=== PATIENT | male | born 1980 | race Caucasian/White ===

== ENCOUNTER 2020-04-08 12:42 | Emergency (ER) | payer OTHER ==
--- NOTE | 2020-04-08 13:07 | ER Document Report ---
ED Medical Screen (RME) - General Stated Complaint: CHEST PAIN/TIGHTNESS/BLOOD PRESSURE PROBLEM Time Seen by Provider: 04/08/20 12:56 Notes: HPI: 39-year-old male presenting for evaluation of chest pain that began last night. Developed nausea after dinner then a mild discomfort that seem to radiate up through the central chest and occasionally into the back under the left shoulder blade. Mild shortness of breath. Symptoms persisted and worsened today, his mother checked his blood pressure and it was elevated at home they reconfirmed this at [facility] and then came over to the hospital. No history of hypertension PHYSICAL EXAMINATION: Patient appears mildly uncomfortable. No reproducible pain on palpation of the abdomen. EKG normal sinus rhythm without visible ectopy I have greeted and performed a rapid initial assessment of this patient. A comprehensive ED assessment and evaluation of the patient, analysis of test results and completion of medical decision making process will be conducted by an additional ED providers. - Related Data Allergies/Adverse Reactions: amoxicillin Allergy (Verified 04/08/20 13:01) Physical Exam - Vital signs Vitals: Temp Pulse Resp BP Pulse Ox 97.5 F 95 16 152/112 H 100 04/08/20 12:59 04/08/20 12:59 04/08/20 12:59 04/08/20 12:59 04/08/20 12:59 Course - Vital Signs Vital signs: Temp Pulse Resp BP Pulse Ox 97.5 F 95 16 152/112 H 100 04/08/20 12:59 04/08/20 12:59 04/08/20 12:59 04/08/20 12:59 04/08/20 12:59
--- NOTE | 2020-04-08 13:26 | RADIOLOGY REPORT (SQ) ---
EXAM DESCRIPTION: CHEST SINGLE VIEW IMAGES COMPLETED DATE/TIME: 04/08/2020 1:17 pm REASON FOR STUDY: chest pain COMPARISON: None. EXAM PARAMETERS: NUMBER OF VIEWS: One view. TECHNIQUE: Single frontal radiographic view of the chest acquired. RADIATION DOSE: NA LIMITATIONS: None. FINDINGS: LUNGS AND PLEURA: No opacities, masses or pneumothorax. No pleural effusion. MEDIASTINUM AND HILAR STRUCTURES: No masses. Contour normal. HEART AND VASCULAR STRUCTURES: Heart normal in size. Normal vasculature. BONES: No acute findings. HARDWARE: None in the chest. OTHER: No other significant finding. IMPRESSION: NO ACUTE RADIOGRAPHIC FINDING IN THE CHEST. TECHNICAL DOCUMENTATION: JOB ID: [id number] 2010 [employer]- All Rights Reserved Reading location - IP/workstation name: [email or web address]
--- NOTE | 2020-04-08 13:53 | ER Document Report ---
ED General - General Chief Complaint: Chest Pain Stated Complaint: CHEST PAIN/TIGHTNESS/BLOOD PRESSURE PROBLEM Time Seen by Provider: 04/08/20 12:56 Primary Care Provider: AYDIN MALIK MD [ACTIVE STAFF] - Follow up in 3-5 days (To discuss outpatient stress test) Notes: 39-year-old male presents with chest pain. He is been having nausea for about 2 days since arriving here from [place] to stay with his mom. Today he still felt malaise and then was helping put HD TV on the wall not lifting or exerting himself and developed pain in his lower breastbone" area which radiates straight up into his throat. Had some mild left neck pain as well. No radiation to the back or down the arm. Mild shortness of breath and nausea at that time. Now resolved. Occurred about 7 AM and lasted over an hour. Never had this before. No known coronary disease. Does not smoke. Cocaine user in the past but is not used in 2-3 years. Hypertensive at triage. - Related Data Allergies/Adverse Reactions: amoxicillin Allergy (Verified 04/08/20 13:01) Home Medications: gabapentin. wellbutrin xr Past Medical History - General Information source: Patient - Social History Smoking Status: Former Smoker Chew tobacco use (# tins/day): No Frequency of alcohol use: Heavy Drug Abuse: None Family History: None Review of Systems - Review of Systems Notes: REVIEW OF SYSTEMS GEN: Denies fever, chills, weight loss ENT: Denies sore throat, nasal discharge, ear pain EYES: Denies blurry vision, eye pain, discharge CV: Chest pressure RESP: Denies cough, shortness of breath, wheezing GI: Nausea MSK: Denies joint pain/swelling, edema, SKIN: Denies rash, skin lesions LYMPH: Denies swollen glands/lymph nodes NEURO: Denies headache, focal weakness or numbness, dizziness PSYCH: Denies depression, suicidal or homicidal ideation PHYSICAL EXAMINATION General: No acute distress, well-nourished Head: Atraumatic, normocephalic ENT: Mouth normal, oropharynx moist, no exudates or tonsillar enlargement Eyes: Conjunctiva normal, pupils equal, lids normal Neck: No JVD, supple, no guarding CVS: Normal rate, regular rhythm, no murmurs Resp: No resp distress, equal and normal breath sounds bilaterally GI: Nondistended, soft, no tenderness to palpation, no rebound or guarding Ext: No deformities, no edema, normal range of motion in upper and lower ext Back: No CVA or midline TTP Skin: No rash, warm Lymphatic: No lymphadeopathy noted Neuro: Awake, alert. Face symmetric. GCS 15. Physical Exam - Vital signs Vitals: Temp Pulse Resp BP Pulse Ox 97.5 F 95 16 152/112 H 100 04/08/20 12:59 04/08/20 12:59 04/08/20 12:59 04/08/20 12:59 04/08/20 12:59 Course - Re-evaluation Re-evalutation: 04/08/20 15:17 Patient presents with atypical chest pain in the setting of hypertension but also heavy drinking. The pain has some characteristics like gastritis or reflux His ECG is normal he has no previous cardiac history and his heart score is 1 His labs are unrevealing except for some elevated LFTs AST being the higher transaminase His troponin is negative. I gave him a dose of Maalox and Zofran he feels better We discussed alcohol cessation outpatient follow-up for possible stress testing once he gets home to [place] tomorrow I have discussed with the patient there likely diagnosis, aftercare plan, follow-up plans and my usual and customary return precautions. They verbalized understanding of this. - Vital Signs Vital signs: Temp Pulse Resp BP Pulse Ox 97.6 F 90 18 154/118 H 98 04/08/20 13:07 04/08/20 13:07 04/08/20 13:07 04/08/20 13:07 04/08/20 13:39 - Laboratory Result Diagrams: 04/08/20 13:33 04/08/20 13:33 Laboratory results interpreted by me: 04/08/20 04/08/20 13:33 13:33 Hgb 17.2 H MCV 105 H MCH 36.7 H Sodium 135.2 L Chloride 94 L Carbon Dioxide 33 H Total Bilirubin 2.0 H Direct Bilirubin 0.5 H AST 234 H ALT 207 H Total Protein 8.4 H - Diagnostic Test Radiology reviewed: Image reviewed, Reports reviewed - EKG Interpretation by Me EKG shows normal: Sinus rhythm Rate: Normal Rhythm: NSR When compared to previous EKG there are: Previous EKG unavailable Additional EKG results interpreted by me: 04/08/20 13:[address] depression or elevation No T wave inversion or flattening Discharge - Discharge Clinical Impression: Alcohol abuse Chest pain, unspecified Qualifiers: Chest pain type: unspecified Qualified Code(s): R07.9 - Chest pain, unspecified Condition: Good Disposition: HOME, SELF-CARE Instructions: Chest Pain of Unclear Cause ([facility]) Referrals: AYDIN MALIK MD [ACTIVE STAFF] - Follow up in 3-5 days (To discuss outpatient stress test)
[2020-04-08 14:03] LABS: ABSOLUTE BASOPHILS # (AUTO) 0.1 10^3/uL (0.0-0.2); ABSOLUTE EOSINOPHILS # (AUTO) 0.2 10^3/uL (0.0-0.6); ABSOLUTE LYMPHOCYTES (AUTO) 0.9 10^3/uL (0.5-4.7); ABSOLUTE MONOCYTES (AUTO) 0.6 10^3/uL (0.1-1.4); ABSOLUTE NEUT (AUTO) 4.2 10^3/uL (1.7-8.2); BASOPHILS % (AUTO) 1.1 % (0-2); EOSINOPHILS % (AUTO) 3.5 % (0-6); HEMOGLOBIN 17.2 g/dL (13.5-17.0); LYMPHOCYTES % (AUTO) 14.5 % (13-45); MEAN CORPUSCULAR HEMOGLOBIN 36.7 pg (27.0-33.4); MEAN CORPUSCULAR HGB CONC 35.1 g/dL (32.0-36.0); MEAN CORPUSCULAR VOLUME 105 fl (80-97); MONOCYTES % (AUTO) 9.5 % (3-13); PLATELET COUNT 234 10^3/uL (150-450); RED BLOOD COUNT 4.69 10^6/uL (4.35-5.55); RED CELL DISTRIBUTION WIDTH 13.7 % (11.5-14.0); SEGMENTED NEUTROPHILS % (AUTO) 71.4 % (42-78); TOTAL CELLS COUNTED % (AUTO) 100 %; WHITE BLOOD COUNT 5.9 10^3/uL (4.0-10.5)
[2020-04-08 14:23] LABS: ALBUMIN 4.7 g/dL (3.5-5.0); ALKALINE PHOSPHATASE 116 U/L (38-126); ANION GAP 8 (5-19); ASPARTATE AMINO TRANSFERASE 234 U/L (17-59); BILIRUBIN,DIRECT 0.5 mg/dL (0.0-0.4); BLOOD UREA NITROGEN 8 mg/dL (7-20); CALCIUM 10.2 mg/dL (8.4-10.2); CARBON DIOXIDE 33 mmol/L (22-30); CHLORIDE 94 mmol/L (98-107); GLUCOSE 101 mg/dL (75-110); POTASSIUM 3.8 mmol/L (3.6-5.0); TOTAL PROTEIN 8.4 g/dL (6.3-8.2)
[2020-04-08 14:24] LABS: INTERNATIONAL RATION (INR) 0.91; PROTHROMBIN TIME 12.5 SEC (11.4-15.4)
[2020-04-08] MEDS ORDERED: MAG HYDROX/AL HYDROX/SIMETH SUSP 30 ML UDCUP PO ONE (14:27)
[2020-04-08] MEDS ORDERED: ONDANSETRON HCL INJ/PF 4 MG/2 ML SDV IV ONE (14:27)
[2020-04-08 15:58] VITALS: BP 158/109
--- NOTE | 2020-04-08 16:45 | EKG REPORT ---
SEVERITY:- NORMAL ECG - SINUS RHYTHM : Confirmed by: Srini Hayden MD 08-Apr-2020 16:44:18
== END 2020-04-08 15:59 | disposition home or self-care (01) ==
LOC: ER 12:42
DX: F10.10 Alcohol abuse, uncomplicated (principal); R07.9 Chest pain, unspecified; R11.0 Nausea; R06.02 Shortness of breath
CPT/HCPCS: 93005; 99285; 96374; 36415; 83690; 85025; 85610; 80053; 84484; 71045; 93010; J2405